=== PATIENT | female | born 1985 | race Hispanic/Latino ===

== ENCOUNTER 2017-01-12 21:16 | Emergency (ER) | payer OTHER ==
[2017-01-13] MEDS ORDERED: TYLENOL ONE (01:23)
[2017-01-13] MEDS ORDERED: TYLENOL PO ONE (01:28)
[2017-01-13] MEDS ORDERED: AUGMENTIN 875 MG PO ONE (06:32)
[2017-01-13] MEDS ORDERED: NORCO 5/325 PO ONE (06:32)
--- NOTE | 2017-01-13 06:36 | Emergency Department Report ---
ED ENT HPI - General Chief complaint: Dental/Oral Stated complaint: LFT SIDE FACIAL SWELLING/TOOTHACHE Time Seen by Provider: 01/13/17 06:03 Source: patient Mode of arrival: Ambulatory Limitations: No Limitations - History of Present Illness Initial comments: 31-year-old smoker past medical history recurrent dental abscesses presents with 2-3 days of left lower toothache with mild adjacent swelling. Patient speaking in full sentences no fever no chills no headache no difficulty swallowing liquids or solids, states she has had recurrent dental abscesses in the past. Patient has follow-up with dentist this week but has not yet gone. Patient denies any recent dental work. MD complaint: tooth pain Onset/Timin -: days(s) Location: tooth # (20) Severity: moderate Severity scale (0 -10): 5 Quality: aching, sharp Consistency: intermittent Worsens with: eating Context-Epistaxis: history of similar Context- Dental: history of dental caries, poor dental care - Related Data Previous Rx's Medication Instructions Recorded Last Taken Type Acetaminophen/Codeine [Tylenol #3] 1 tab PO Q6H PRN #15 tab 01/13/17 Unknown Rx Amoxicillin [Trimox CAP] 500 mg PO Q8H #30 capsule 01/13/17 Unknown Rx Chlorhexidine Mouthwash [Peridex] 118 ml MM BID #1 bottle 01/13/17 Unknown Rx Ibuprofen [Motrin] 600 mg PO Q8H PRN #25 tablet 01/13/17 Unknown Rx Allergies Allergy/AdvReac Type Severity Reaction Status Date / Time No Known Allergies Allergy Verified 01/12/17 21:42 ED Dental HPI - General Chief complaint: Dental/Oral Stated complaint: LFT SIDE FACIAL SWELLING/TOOTHACHE Time Seen by Provider: 01/13/17 06:03 Source: patient Mode of arrival: Ambulatory Limitations: No Limitations - Related Data Previous Rx's Medication Instructions Recorded Last Taken Type Acetaminophen/Codeine [Tylenol #3] 1 tab PO Q6H PRN #15 tab 01/13/17 Unknown Rx Amoxicillin [Trimox CAP] 500 mg PO Q8H #30 capsule 01/13/17 Unknown Rx Chlorhexidine Mouthwash [Peridex] 118 ml MM BID #1 bottle 01/13/17 Unknown Rx Ibuprofen [Motrin] 600 mg PO Q8H PRN #25 tablet 01/13/17 Unknown Rx Allergies Allergy/AdvReac Type Severity Reaction Status Date / Time No Known Allergies Allergy Verified 01/12/17 21:42 ED Review of Systems ROS: Stated complaint: LFT SIDE FACIAL SWELLING/TOOTHACHE Other details as noted in HPI Constitutional: denies: chills, fever Eyes: denies: eye pain, eye discharge, vision change ENT: dental pain. denies: ear pain, throat pain Respiratory: denies: cough, shortness of breath, wheezing Cardiovascular: denies: chest pain, palpitations Endocrine: no symptoms reported Gastrointestinal: denies: abdominal pain, nausea, diarrhea Genitourinary: denies: urgency, dysuria, discharge Musculoskeletal: denies: back pain, joint swelling, arthralgia Skin: denies: rash, lesions Neurological: denies: headache, weakness, paresthesias Psychiatric: denies: anxiety, depression Hematological/Lymphatic: denies: easy bleeding, easy bruising ED Past Medical Hx - Past Medical History Previous Medical History?: No - Surgical History Past Surgical History?: No - Social History Smoking Status: Current Every Day Smoker Substance Use Type: None - Medications Home Medications: Home Medications Medication Instructions Recorded Confirmed Last Taken Type Acetaminophen/Codeine [Tylenol #3] 1 tab PO Q6H PRN #15 tab 01/13/17 Unknown Rx Amoxicillin [Trimox CAP] 500 mg PO Q8H #30 capsule 01/13/17 Unknown Rx Chlorhexidine Mouthwash [Peridex] 118 ml MM BID #1 bottle 01/13/17 Unknown Rx Ibuprofen [Motrin] 600 mg PO Q8H PRN #25 tablet 01/13/17 Unknown Rx ED Physical Exam - General Limitations: No Limitations General appearance: alert, in no apparent distress - Head Head exam: Present: atraumatic, normocephalic - Eye Eye exam: Present: normal appearance, PERRL, EOMI - ENT ENT exam: Present: mucous membranes moist - Expanded ENT Exam Expanded Mouth exam: Present: normal external inspection Teeth exam: Present: dental caries, dental tenderness # (19, 20, tiny abscess, no involvment of neck, no floor of mouth tenderness or cellulitis under tongue, no clinical signs of ludwigs angina), gingival enlargement 1 - Dental Tenderness - Neck Neck exam: Present: normal inspection - Respiratory Respiratory exam: Present: normal lung sounds bilaterally. Absent: respiratory distress - Cardiovascular Cardiovascular Exam: Present: regular rate, normal rhythm. Absent: systolic murmur, diastolic murmur, rubs, gallop - GI/Abdominal GI/Abdominal exam: Present: soft, normal bowel sounds - Extremities Exam Extremities exam: Present: normal inspection - Back Exam Back exam: Present: normal inspection - Neurological Exam Neurological exam: Present: alert, oriented X3 - Psychiatric Psychiatric exam: Present: normal affect, normal mood - Skin Skin exam: Present: warm, dry, intact, normal color. Absent: rash ED Course Vital Signs 01/12/17 01/13/17 01/13/17 21:42 01:24 04:23 Temperature 99.4 F Pulse Rate 100 H 104 H 90 Respiratory 18 18 18 Rate Blood Pressure 122/82 127/85 116/81 Blood Pressure [Left] O2 Sat by Pulse 98 97 99 Oximetry 01/13/17 07:03 Temperature Pulse Rate 88 Respiratory 18 Rate Blood Pressure Blood Pressure 118/80 [Left] O2 Sat by Pulse 99 Oximetry ED Medical Decision Making - Medical Decision Making A/P: Dental cavity, small dental abscess, gingivitis 1-Motrin, Tylenol 3 PRN, amoxicillin 10 days week, Peridex mouthwash 2-patient advised to follow up as soon as possible for dental cavity. I advised patient that lack of follow-up and untreated dental cavity can result in infection to come her face and jaw and if left untreated can progress to sepsis and become lethal. Patient understood these instructions and agreed to follow-up on outpatient basis with dentist as soon as possible. 3-advised to return to ED [facility] for any significant bleeding pus drainage from oral cavity inability to tolerate by mouth, dyspnea shortness of breath muffled voice and/or stridor Critical care attestation.: If time is entered above; I have spent that time in minutes in the direct care of this critically ill patient, excluding procedure time. ED Disposition Clinical Impression: Dental caries, Dental abscess Disposition: DISCHARGED TO HOME OR SELFCARE Is pt being admited?: No Does the pt Need Aspirin: No Condition: Stable Instructions: Dental Abscess (ED), Dental Caries (ED), Gingivitis (ED), Toothache (ED) Additional Instructions: [email or web address] Prescriptions: Acetaminophen/Codeine [Tylenol #3] 1 tab PO Q6H PRN #15 tab PRN Reason: Toothache Amoxicillin [Trimox CAP] 500 mg PO Q8H #30 capsule Chlorhexidine Mouthwash [Peridex] 118 ml MM BID #1 bottle Ibuprofen [Motrin] 600 mg PO Q8H PRN #25 tablet PRN Reason: Pain Referrals: [facility] [Outside] - 3-5 Days Time of Disposition: 06:35
[2017-01-13 07:04] VITALS: BP 118/80
== END 2017-01-13 07:03 | disposition home or self-care (01) ==
LOC: ED 21:16
DX: K04.7 Periapical abscess without sinus (principal); K02.9 Dental caries, unspecified; F17.200 Nicotine dependence, unspecified, uncomplicated
CPT/HCPCS: 99282